=== PATIENT | male | born 1970 | race Caucasian/White ===

== ENCOUNTER 2018-04-19 20:57 | Emergency (ER) | payer BC ==
[2018-04-19 21:14] VITALS: BP 141/93
[2018-04-19] MEDS ORDERED: DOXYcycline CAP(*) 100 MG PO ONE (21:21)
--- NOTE | 2018-04-19 21:29 | ED ---
Bite Injury/Animal - HPI Summary HPI Summary: 47 yr old with tick attached left latissimus dorsi area. On there for about two days. he noticed this evening, and told him he had a tick. No other medical problems. Denies allergies to meds - History of Current Complaint Chief Complaint: [place] Stated Complaint: TICK Time Seen by Provider: 04/19/18 21:10 Pain Intensity: 1 - Allergies/Home Medications Allergies/Adverse Reactions: Allergies Allergy/AdvReac Type Severity Reaction Status Date / Time No Known Allergies Allergy Verified 04/19/18 21:12 Home Medications: Home Medications NK [No Home Medications Reported] 04/19/18 [History Confirmed 04/19/18] PMH/Surg Hx/FS Hx/Imm Hx Infectious Disease History: No Infectious Disease History: Denies: Traveled Outside the [place] in Last 30 Days - Family History Known Family History: Positive: None - Social History Occupation: Employed Full-time Lives: With Family Alcohol Use: Rare Substance Use Type: Reports: None Smoking Status (MU): Never Smoked Tobacco Review of Systems Positive: Other - tick imbedded in left latissimus area All Other Systems Reviewed And Are Negative: Yes Physical Exam Triage Information Reviewed: Yes Vital Signs On Initial Exam: Initial Vitals Temp Pulse Resp BP Pulse Ox 99.2 F 63 15 141/93 98 04/19/18 21:10 04/19/18 21:10 04/19/18 21:10 04/19/18 21:10 04/19/18 21:10 Vital Signs Reviewed: Yes Appearance: Positive: Well-Appearing, No Pain Distress Skin: Positive: Other - tick present with 1.5 cm of localized reaction present to left latissimus dorsi area. Head/Face: Positive: Normal Head/Face Inspection Eyes: Positive: EOMI ENT: Positive: Normal ENT inspection Neck: Positive: Nontender Respiratory/Lung Sounds: Positive: Clear to Auscultation, Breath Sounds Present Musculoskeletal: Positive: Strength/ROM Intact Neurological: Positive: Sensory/Motor Intact, Alert, Oriented to Person Place, Time, CN Intact II-III Psychiatric: Positive: Normal - [place] Coma Scale Best Eye Response: 4 - Spontaneous Best Motor Response: 6 - Obeys Commands Best Verbal Response: 5 - Oriented Coma Scale Total: 15 Procedures - Procedure Summary Procedure Summary: Tick successfully removed from the left upper back with the small tick removal device. tolerated well. Diagnostics - Vital Signs Vital Signs Temp Pulse Resp BP Pulse Ox 04/19/18 21:10 99.2 F 63 15 141/93 98 - Laboratory Lab Statement: Any lab studies that have been ordered have been reviewed, and results considered in the medical decision making process. Bite Injury Course/Dx - Course Course Of Treatment: 47 yr old with tick that was removed by me, and doxy prophylaxis given - Diagnoses Provider Diagnosis: Tick bite, Hypertension Discharge - Sign-Out/Discharge Documenting (check all that apply): Discharge/Admit/Transfer - Discharge Plan Condition: Good Disposition: HOME Patient Education Materials: Tick Bite (ED), Hypertension (ED) Referrals: Amy Bower MD [Primary Care Provider] - 2 Days - Billing Disposition and Condition Condition: GOOD Disposition: HOME
== END 2018-04-19 21:29 | disposition home or self-care (01) ==
LOC: UCCORT 20:57
DX: S20.462A Insect bite (nonvenomous) of left back wall of thorax, initial encounter (principal); W57.XXXA Bitten or stung by nonvenomous insect and other nonvenomous arthropods, initial encounter; Y93.9 Activity, unspecified; Y92.9 Unspecified place or not applicable
CPT/HCPCS: 99202; A9270-GY; G0463